=== PATIENT | male | born 1985 | race Caucasian/White ===

== ENCOUNTER 2018-03-05 17:24 | Outpatient (REF) | payer MEDICAID, SELFPAY ==
[2018-03-05 21:36] LABS: Abs Immature Grans 0.04 k/cumm (0.0-0.09); Absolute Basophil Count 0.02 k/cumm (0.0-0.2); Absolute Eosinophil Count 0.12 k/cumm (0.0-0.7); Absolute Lymphocyte Count 3.37 k/cumm (1.2-3.4); Absolute Monocyte Count 0.73 k/cumm (0.11-0.7); Basophils % 0.2; Eosinophils % 1.1; HCT 48.4 % (40.0-50.0); HGB 16.9 g/dL (13.5-17.5); Immature Grans % 0.4; Lymphocytes % 30.4; Mean Corp. HGB Concentration 34.9 g/dL (32.0-36.0); Mean Corpuscular Volume 88.8 fL (80-95); Mean Platelet Volume 10.1 fL (8.0-11.0); Monocytes % 6.6; Neutrophils % 61.3; Platelet Count 251 x1000/uL (130-400); RBC 5.45 m/cumm (4.50-6.00); RBC Distribution Width 14.3 % (11.8-14.1)
[2018-03-05 21:51] LABS: ALT 32 U/L (12-78); AST 31 U/L (15-37); Albumin 3.9 g/dL (3.4-5.0); Alkaline Phosphatase 112 U/L (46-116); Anion Gap 11.6 mmol/L (3-11); BUN 13 mg/dL (7-18); Bilirubin, Total 0.4 mg/dL (0.2-1.0); CO2 24.4 mmol/L (21.0-32.0); CREATININE 0.71 mg/dL (0.70-1.30); Calcium 8.8 mg/dL (8.5-10.1); Chloride 103 mmol/L (98-107); Glucose 78 mg/dL (70-100); Lipase 110 U/L (73-393); Potassium 4.3 mmol/L (3.5-5.1); Sodium 139 mmol/L (136-145); Total Protein 7.1 g/dL (6.4-8.2)
== END 2018-03-05 17:44 ==
LOC: NCHCN 17:24
PROVIDERS: PCP Registered Nurse; Visit Provider Registered Nurse
DX: R10.32 Left lower quadrant pain (principal)
CPT/HCPCS: 80053; 83690; 85025

== ENCOUNTER 2018-05-13 21:02 | Outpatient (REF) | payer MEDICAID, SELFPAY ==
[2018-05-13 22:53] LABS: Bacteria Moderate HPF (Negative); Crystals Negative HPF (Negative); Epithelial Cells Rare HPF (Negative); Other Cells Few Renal (Negative); RBC Negative (0-2)
[2018-05-13 22:54] LABS: C & S Indicated? No; Casts Negative LPF (Negative); Mucus Heavy (Negative)
== END 2018-05-13 21:22 ==
LOC: NCHCN 21:02
PROVIDERS: PCP Registered Nurse; Visit Provider Registered Nurse
DX: R82.90 Unspecified abnormal findings in urine (principal)
CPT/HCPCS: 81015

== ENCOUNTER 2018-05-21 15:46 | Outpatient (REF) | payer MEDICAID, SELFPAY ==
[2018-05-21 21:52] LABS: VALPROIC ACID 46.3 ug/mL (50-100)
[2018-05-21 22:21] LABS: TSH (W/Ref FT4) 1.28 uIU/mL (0.358-3.74); Vitamin B12 488 pg/mL (193-986)
== END 2018-05-21 16:06 ==
LOC: NCHCN 15:46
PROVIDERS: PCP Registered Nurse; Visit Provider Nurse Practitioner Family
DX: F41.8 Other specified anxiety disorders (principal); F51.4 Sleep terrors [night terrors]; F43.10 Post-traumatic stress disorder, unspecified; Z51.81 Encounter for therapeutic drug level monitoring
CPT/HCPCS: 80164; 82607; 84443

== ENCOUNTER 2021-04-07 12:04 | Emergency (ER) | payer MEDICAID, SELFPAY ==
[2021-04-07 12:16] VITALS: BP 130/74; PULSE 68; RESP 16; TEMP 36.8; O2SAT 99
--- NOTE | 2021-04-07 12:22 | ED.GENADUL_ITS ---
Discharge Plan Disposition Patient Disposition: HOME Condition: Stable Discharge Details Clinical Impression: Bacterial conjunctivitis of left eye Primary Care Provider: Dimitri Adler ED Provider: Clarisa Voss Home Meds and New Rx's Prescriptions: No Action fluoxetine 40 mg capsule 40 mg PO DAILY RF: 0 clonidine HCl 0.1 mg tablet 0.1 mg PO DAILY RF: 0 prazosin 1 mg capsule 1 mg PO DAILY RF: 0 topiramate 25 mg tablet 25 mg PO DAILY PRNRF: 0 valproic acid 250 mg capsule 250 mg PO TID RF: 0 omeprazole 40 mg capsule,delayed release(DR/EC) 40 mg PO DAILY RF: 0 gabapentin 300 mg capsule 400 mg PO BID RF: 0 Discharge Instructions Instructions: Polymyxin B/Trimethoprim (Into the eye), Conjunctivitis (ED) Additional Instructions: Use the eyedrops 2 drops to the left eye 3 times a day while awake. Wash hands after touching your eye. Try not to rub your eye. Use warm washcloth to soothe the eye. You may return to work after 3 days on antibiotic and improvement of symptoms. Please take Tylenol or Ibuprofen with food every 4-6 hours as needed for pain and swelling. Follow up with primary care provider in 3-5 days. Return to ED sooner if any worsening or concerns. Increase oral fluids. Stand Alone Forms: Work Release Referrals: Dimitri Adler [Primary Care Provider] - Return if symptoms worsen Medical Decision Making 35-year-old male presents to the ER with chief complaint of left eye erythema, drainage and itching which began today. Patient states he woke up like this itching. He was told to come home from work for possible pinkeye. He denies any sick contacts or any other associated symptoms. He does report recently recovering from a sinus infection which he took NyQuil for. He did not take any antibiotic for the sinus infection. No past medical history meds or allergies. Clinical picture is consistent with conjunctivitis. We will give patient polymyxin eyedrops and instructed to place 2 drops 3 times a day until gone. Discussed home care and strict handwashing techniques. Verbalized understanding. This text was generated using [employer] system, please disregard any oddities of phrase or misspellings. HPI General Mode of arrival: ambulatory . Date/Time Provider Initiated Documentation: 04/07/21 12:06 . Limitations to Documentation: no limitations . Information obtained by: patient and RN notes reviewed . HPI Narrative: 35-year-old male presents to the ER with chief complaint of left eye erythema, drainage and itching which began today. Patient states he woke up like this itching. He was told to come home from work for possible pinkeye. He denies any sick contacts or any other associated symptoms. He does report recently recovering from a sinus infection which he took NyQuil for. He did not take any antibiotic for the sinus infection. No past medical history meds or allergies. Related Data Home Medications Medication Instructions Recorded Confirmed clonidine HCl 0.1 mg PO DAILY 04/07/21 04/07/21 fluoxetine 40 mg PO DAILY 04/07/21 04/07/21 gabapentin 400 mg PO BID 04/07/21 04/07/21 omeprazole 40 mg PO DAILY 04/07/21 04/07/21 prazosin 1 mg PO DAILY 04/07/21 04/07/21 topiramate 25 mg PO DAILY PRN 04/07/21 04/07/21 valproic acid 250 mg PO TID 04/07/21 04/07/21 Allergies Allergy/AdvReac Type Severity Reaction Status Date / Time aspirin Allergy Unverified 04/07/21 12:26 latex Allergy Uncoded 04/07/21 12:26 General Stated Complaint: EyeProblem KYLE: 4 Review of Systems All systems reviewed & are unremarkable except as noted in HPI and below Eyes Eyes: Reports as per HPI, Denies diplopia, Reports eye discharge, Reports irritation, Reports itchy eyes, Denies loss of vision, Denies eye pain, Denies requires corrective lenses and Denies seeing flashes Neurologic Neurologic: Denies loss of vision Allergic/Immunologic Allergic/Immunologic: Reports itchy eyes PFSH All Active Problems (Updated 04/07/21 @ 12:27 by Clarisa Voss) Bacterial conjunctivitis of left eye (Acute) Social History Smoking risk assessment performed?: No Exam HENMT Head: normal to inspection Ears: hearing grossly normal bilaterally General nose exam: external nose normal Face and sinus: normal facial exam Mouth: oral mucosae normal Eyes Visual Vinson: normal visual vinson by confrontation Alignment and Position: alignment normal Periorbital: periorbital findings abnormal left periorbital erythema Conjunctivae: conjunctival abnormality left conjunctival injection diffuse Sclera: sclerae normal Cornea: corneas normal Pupils: PERRL, normal by confrontation and pupil size bilaterally 3 EOM: EOM intact bilaterally Resp Effort & Inspection: normal respiratory effort and able to speak in complete sentences Cardio Rate: regular rate Course Vital Signs Vital signs: Vital Signs Temperature 36.8 C 04/07/21 12:16 Pulse 68 04/07/21 12:16 Respiratory Rate 16 04/07/21 12:16 Blood Pressure 130/74 04/07/21 12:16 Pulse Oximetry 99 04/07/21 12:16 Temperature 36.8 C 04/07/21 12:16 Temperature Source Skin 04/07/21 12:16 Pulse 68 04/07/21 12:16 Respiratory Rate 16 04/07/21 12:16 Respiratory Effort 04/07/21 12:16 Blood Pressure 130/74 04/07/21 12:16 Blood Pressure Position Sitting 04/07/21 12:16 Pulse Oximetry 99 04/07/21 12:16 Oxygen Delivery Method Room Air 04/07/21 12:16 Oxygen Flow Rate 0 04/07/21 12:16 Pain Level 9 04/07/21 12:16
[2021-04-07] MEDS: Polymyxin B/Trimethoprim Ophth Soln 10 ML BTL OS (12:25)
== END 2021-04-07 12:40 | disposition home or self-care (01) ==
PROVIDERS: Emergency Provider Registered Nurse Emergency; PCP Family Medicine
DX: H10.32 Unspecified acute conjunctivitis, left eye (principal)
CPT/HCPCS: 99283

== ENCOUNTER 2021-04-24 01:35 | Emergency (ER) | payer MEDICARE, MEDICAID, SELFPAY ==
[2021-04-24] VITALS (8 sets, daily range): BP systolic 129–141; BP diastolic 76–99; PULSE 75–100; RESP 15–39; TEMP 37; O2SAT 97–99
--- NOTE | 2021-04-24 01:45 | DI.CT_ITS ---
Exam(s) CT HEAD WO EXAM: CT HEAD WO CLINICAL HISTORY: seizure, headache. TECHNIQUE: Imaging Protocol: Axial computed tomography images with coronal and sagittal reformatted images were created and reviewed COMPARISON: No exams were available for comparison FINDINGS: Ventricles and Extra axial spaces: Normal in size and morphology for the patient's age. Hemorrhage: None. Cerebral parenchyma: Old lacunar infarct in the right basal ganglia and region of internal capsule. No acute infarct visible. Midline shift: None. Brainstem/Cerebellum: Normal. Calvarium: Normal. 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 The sinuse s are are otherwise clear. Left mastoids clear. Clear. Soft Tissues: question posterior scalp swelling. Vasculature: There is a question of prominence of the right cavernous carotid versus cavernous sinus , more so on the axial images which may be artifactual. Findings could represent normal asymmetry, a rtifact, aneurysmal dilatation or less likely a mass such as meningioma. IMPRESSION: Old right basal ganglia lacunar infarct. There is a question of prominence of the right cavernous carotid versus cavernous sinus, more so on t he axial images which may be artifactual. Findings could represent normal asymmetry, artifact, aneury smal dilatation or less likely a mass such as meningioma. Comparison with prior exams recommended. If none are available, MRI and MRA recommended for further evaluation. RADIATION DOSE DELIVERED: 837.64mGy.cm Total DLP DATA REPOSITORY: All CT scans at this facility are submitted to the National Radiology Data Registry (NRDR) Dose Index Registry (DIR) with the [employer] (ACR). RADIATION OPTIMIZATION: All CT scans at this facility use at least one of these dose optimization te chniques: automated exposure control; mA and/or kV adjustment per patient size (includes targeted exa ms where dose is matched to clinical indication); or iterative reconstruction.
[2021-04-24 01:46] LABS: Abs Immature Grans 0.03 10^3/uL (0.0-0.06); Absolute Basophil Count 0.04 10^3/uL (0.0-0.2); Absolute Eosinophil Count 0.11 10^3/uL (0.0-0.7); Absolute Monocyte Count 0.85 10^3/uL (0.1-0.8); Basophils % 0.3; Eosinophils % 0.8; HCT 47.5 % (40.0-50.0); HGB 16.1 g/dL (13.5-17.5); Immature Grans % 0.2; Lymphocytes % 24.5; MCH 30.8 pg (27.0-33.0); MCHC 33.9 % (32.0-36.0); MPV 9.1 fL (8.0-11.0); Monocytes % 6.4; Neutrophils % 67.8; Nucleated RBC 0 %; Platelet Count 257 10^3/uL (130-400); RBC 5.22 10^6/uL (4.36-5.78); RDW 13.2 % (11.8-14.1); RDW-SD 45.1 fL; WBC 13.32 10^3/uL (4.4-10.8)
[2021-04-24 01:48] LABS: Absolute Lymphocyte Count 3.26 10^3/uL (1.2-3.4); Absolute Neutrophil Count 9.03 10^3/uL (1.2-6.7)
--- NOTE | 2021-04-24 01:53 | ED.GENADUL_ITS ---
Discharge Plan Disposition Patient Disposition: HOME Condition: Stable Discharge Details Clinical Impression: Seizure Primary Care Provider: Dimitri Adler ED Provider: Manolo Leon Home Meds and New Rx's Prescriptions: Continued fluoxetine 40 mg capsule 40 mg PO DAILY RF: 0 clonidine HCl 0.1 mg tablet 0.1 mg PO DAILY RF: 0 prazosin 1 mg capsule 1 mg PO DAILY RF: 0 topiramate 25 mg tablet 25 mg PO DAILY PRNRF: 0 valproic acid 250 mg capsule 250 mg PO TID RF: 0 omeprazole 40 mg capsule,delayed release(DR/EC) 40 mg PO DAILY RF: 0 gabapentin 300 mg capsule 400 mg PO BID RF: 0 Discharge Instructions Additional Instructions: Your blood work did not show concerning findings at this time your cat scan did not show any bleeding or other new findings follow up with your primary care provider within a week and if you haven't had an MRI within the past year you should discuss having another MRI of your brain if you feel more ill, have repeated seizures or fevers return to the emergency department do not swim/bathe alone or drive until cleared by your primary care provider or neurologist Stand Alone Forms: Work Release Medical Decision Making 35 yo male with reported history of seizures on valproic acid and states his pcp in [place] manages his medications, comes in with reported seizure. He states he gets seizures and migraines every few weeks and especially under stressful events. He states family members were arguing which caused him to have frontal head pain similar to his prior migraines and then had reported tonic clonic seizure and was post ictal per ems. He arrives stable caox4 with no focal motor or sensation deficits and CN II-XII intact. Denies alcohol or drug use. HE denies missing any doses of his meds. He denies any falls. HE still has frontal head pain but denies this is the worst of his life. Given the seizure will observe here and obtain ct head, and check for electrolyte abnormalities. No meningismus and no fevers to suggest recruitment specialist infection pt remains stable, labs unremarkable. CT shows no acute hemorrhage. He does have assymetric hyperdense soft tissue prominence in location of right cavernos sinus and this could represent normal variant though the radiologist did write an aneursym or extraaxial mass such as meningioma could have similar appearance and recommend MRI if it hasn't been worked up before. Also note a lacunar infarct that is old and also underpneumatized right temporal bone. He has no pain in the right mastoid, normal TM and no erythema or warmth so doubt mastoiditis. He is feeling better, he states he had a cva 2 years ago on his birthday and was treated at [facility]. He states he has had an MRI within the past year. HE is stable for d/c and I advised to follow up with his pcp and return precautions given Differential Diagnosis Differential Diagnosis: seizure, migraine, hemorrhage, electrolyte abnormality Imaging Data Radiologic Study: Attestation: I personally reviewed and interpreted this imaging study as follows: Imaging: CT Scan Radiologist's impression: IMPRESSION: 1. No acute intracranial hemorrhage or depressed skull fracture. MARLEN MENDEZ Preliminary Radiology Report ALUMINUM CONTAINER TESTER (QA) DISCREPANCY? If there is a discrepancy between the preliminary and final interpretation, please notify [employer] via [email or web address]. If you do not have access to our QA portal, call our QA team at [phone] CONFIDENTIALITY STATEMENT This report is intended only for the use of the referring physician, and only in accordance with law, If you received this in error, call [phone] Page 2 of 2 2. Asymmetric hyperdense extra-axial nodular soft tissue prominence in the expected location of the right cavernous sinus and right carotid siphon. The etiology of this appearance is uncertain. Unusual asymmetry of the normal carotid siphon could perhaps have this appearance; however, an aneurysm or an extra-axial mass such as a meningioma could have a similar appearance. Further evaluation dedicated MRI is recommended if this finding has not been previously worked up. 3. Large old lacunar infarct in the region of the right basal ganglia and deep white matter tracts, unusual in a patient of this age. 4. Underpneumatized right temporal bone. Partial opacification of the right mastoid air cells. Clinical correlation is recommended to distinguish a mastoid effusion from mastoiditis Lab Data Lab results reviewed: Yes I reviewed the patient's lab results. HPI General Mode of arrival: EMS . Date/Time Provider Initiated Documentation: 04/24/21 01:36 . Limitations to Documentation: no limitations . Information obtained by: patient . History of Present Illness 35 year old M presents to the emergency department with the chief complaint of seizure, Patient started experiencing this hour(s) (1) and it has been now resolved. No relieving factors improve symptom(s), No exacerbating factors reported . Patient notes headaches. Patient did receive the following treatments prior to arrival, none Related Data Home Medications Medication Instructions Recorded Confirmed clonidine HCl 0.1 mg PO DAILY 04/07/21 04/24/21 fluoxetine 40 mg PO DAILY 04/07/21 04/24/21 gabapentin 400 mg PO BID 04/07/21 04/24/21 omeprazole 40 mg PO DAILY 04/07/21 04/24/21 prazosin 1 mg PO DAILY 04/07/21 04/24/21 topiramate 25 mg PO DAILY PRN 04/07/21 04/24/21 valproic acid 250 mg PO TID 04/07/21 04/24/21 Allergies Allergy/AdvReac Type Severity Reaction Status Date / Time aspirin Allergy Unverified 04/24/21 01:51 latex Allergy Uncoded 04/24/21 01:51 General Stated Complaint: Seizure KYLE: 2 Review of Systems All systems reviewed & are unremarkable except as noted in HPI and below Constitutional Constitutional: Denies chills, Denies fever(s) and Denies weakness Cardiovascular Cardiovascular: Denies chest pain and Denies dyspnea Respiratory Respiratory: Denies cough and Denies dyspnea Gastrointestinal Gastrointestinal: Denies abdominal pain, Denies nausea and Denies vomiting Musculoskeletal Musculoskeletal: Denies joint swelling Neurologic Neurologic: Denies weakness PFSH All Active Problems (Updated 04/24/21 @ 02:33 by Manolo Leon MD) Bacterial conjunctivitis of left eye (Acute) Seizure (Acute) Social History Smoking/Tobacco Use Status: Current every day Tobacco Type: cigarettes Smoking risk assessment performed?: Yes Alcohol Intake: current Alcohol Intake frequency: a few times a month Alcohol type: wine Drug use: Never Substance use type: does not use Do you feel safe at home: Yes Do you feel safe in your relationship?: Yes Exam Const General: no acute distress Orientation: alert HENMT Head: normal to inspection Ears: external ears normal General nose exam: external nose normal Mouth: moist mucous membranes Eyes General: appearance normal, both eyes and all related structures Neck Neck: normal visual inspection Resp Effort & Inspection: normal respiratory effort and able to speak in complete sentences Cardio Rate: regular rate Skin General skin exam: no rashes or lesions noted Neuro General: patient alert and patient oriented x3 Extrem General: normal to inspection Psych Mental Status: mental status grossly normal Course Vital Signs Vital signs: Vital Signs Temperature 37.0 C 04/24/21 01:35 Pulse 100 H 04/24/21 01:35 Respiratory Rate 18 04/24/21 01:35 Blood Pressure 141/87 H 04/24/21 01:35 Pulse Oximetry 99 04/24/21 01:35 Temperature 37.0 C 04/24/21 01:35 Temperature Source Skin 04/24/21 01:35 Pulse 100 H 04/24/21 01:35 Respiratory Rate 18 04/24/21 01:35 Respiratory Effort Non-Labored 04/24/21 01:51 Blood Pressure 141/87 H 04/24/21 01:35 Blood Pressure Position Supine 04/24/21 01:35 Pulse Oximetry 99 04/24/21 01:35 Oxygen Delivery Method Room Air 04/24/21 01:35 Oxygen Flow Rate 0 04/24/21 01:35 Pain Level 10 04/24/21 01:35 Lab/Test Results Lab/Test Results: Laboratory Tests Range/Units 04/24/21 01:40 WBC (4.4-10.8) 10^3/uL 13.32 H RBC (4.36-5.78) 10^6/uL 5.22 Hgb (13.5-17.5) g/dL 16.1 Hct (40.0-50.0) % 47.5 MCV (80-95) fL 91.0 MCH (27.0-33.0) pg 30.8 MCHC (32.0-36.0) % 33.9 RDW (11.8-14.1) % 13.2 Plt Count (130-400) 10^3/uL 257 MPV (8.0-11.0) fL 9.1 Immature Gran % 0.2 Neutrophils % 67.8 Lymphocytes % 24.5 Monocytes % 6.4 Eosinophils % 0.8 Basophils % 0.3 Nucleated RBC % % 0 Absolute Neutrophils (1.2-6.7) 10^3/uL 9.03 H Absolute Lymphocytes (1.2-3.4) 10^3/uL 3.26 Absolute Monocytes (0.1-0.8) 10^3/uL 0.85 H Absolute Eosinophils (0.0-0.7) 10^3/uL 0.11 Absolute Basophils (0.0-0.2) 10^3/uL 0.04
[2021-04-24 02:00] LABS: VALPROIC ACID < 3 ug/mL
[2021-04-24 02:02] LABS: ALT 18 U/L (16-63); AST 16 U/L (15-37); Alkaline Phosphatase 105 U/L (46-116); Anion Gap 11.8 mmol/L (3-11); BUN 15 mg/dL (7-18); Bilirubin, Total 0.2 mg/dL (0.2-1.0); CO2 26.2 mmol/L (21.0-32.0); Calcium 8.7 mg/dL (8.5-10.1); Chloride 101 mmol/L (98-107); ETHANOL BLOOD < 3.0 mg/dL (<10); Glucose 98 mg/dL (74-106); Magnesium 1.9 mg/dL (1.8-2.4); Potassium 3.6 mmol/L (3.5-5.1); Sodium 139 mmol/L (136-145); Total Protein 7.3 g/dL (6.4-8.2)
[2021-04-24] MEDS: Acetaminophen 500 MG TAB 1000 MG PO (02:16)
--- NOTE | 2021-04-24 02:23 | DI.VRAD_ITS ---
PROCEDURE INFORMATION: Exam: CT Head Without Contrast Exam date and time: 04/24/2021 1:53 AM Age: 35 years old Clinical indication: Other: Seizure and headache TECHNIQUE: Imaging protocol: Computed tomography of the head without contrast. COMPARISON: No relevant prior studies available. FINDINGS: Brain: No acute intracranial hemorrhage, mass-effect, midline shift, or extra-axial collection is seen. There is a large old lacunar infarct in the region of the right basal ganglia and deep white matter tracts, images 23-32 of series 3. There is unusual asymmetric hyperdense nodular extra-axial soft tissue prominence in the region of the right cavernous sinus and right carotid siphon measuring 1.4 cm x 0.8 cm x 1.1 cm on images 16-17 of series 3 and 49 of series 8. Cerebral ventricles: The ventricular system and basilar cisterns appear appropriate in size and configuration. Paranasal sinuses: The visualized paranasal sinuses appear well-aerated. Mastoid air cells: The left mastoid air cells appear clear. The right temporal bone is underpneumatized. There is partial opacification of the right mastoid air cells. Auditory system: The middle ear cavities appear clear. Orbital cavity: The globes and intraorbital structures appear grossly intact. Bones/joints: The bony calvarium appears intact. No depressed skull fracture is seen. Soft tissues: There appears to be soft tissue swelling extending across the posterior scalp. No focal scalp hematoma is demonstrated. IMPRESSION: 1. No acute intracranial hemorrhage or depressed skull fracture. 2. Asymmetric hyperdense extra-axial nodular soft tissue prominence in the expected location of the right cavernous sinus and right carotid siphon. The etiology of this appearance is uncertain. Unusual asymmetry of the normal carotid siphon could perhaps have this appearance; however, an aneurysm or an extra-axial mass such as a meningioma could have a similar appearance. Further evaluation dedicated MRI is recommended if this finding has not been previously worked up. 3. Large old lacunar infarct in the region of the right basal ganglia and deep white matter tracts, unusual in a patient of this age. 4. Underpneumatized right temporal bone. Partial opacification of the right mastoid air cells. Clinical correlation is recommended to distinguish a mastoid effusion from mastoiditis. Dictated and Authenticated by: Daquan Cruz MD. Ordering:OMEGA French MD
[2021-04-24 03:01] LABS: *AMPHETAMINES SCREEN URINE Negative (Negative); *BARBITURATES SCREEN URINE Negative (Negative); *BENZODIAZEPINES SCREEN URINE Negative (Negative); Cannabinoids THC Negative (Negative); Cocaine Screen,Urine Negative (Negative); METHADONE URINE SCREEN Negative (Negative); OPIATES URINE SCREEN Negative (Negative); Tricyclic Antidepressants Negative (Negative)
== END 2021-04-24 02:45 | disposition home or self-care (01) ==
LOC: ER 02:38
PROVIDERS: Emergency Provider Emergency Medicine; PCP Family Medicine
DX: R56.9 Unspecified convulsions (principal); R51.9 Headache, unspecified; Z79.899 Other long term (current) drug therapy
CPT/HCPCS: 36415; 80053; 80307; 99284; 70450; 80164; 80320; 83735; 85025

== ENCOUNTER → 2021-06-14 01:04 | Outpatient (CLI) | payer MEDICARE, MEDICAID, SELFPAY | PROVIDERS: PCP Family Medicine; Visit Provider Family Medicine ==

== ENCOUNTER 2022-03-14 13:55 | Outpatient (REF) | payer MEDICARE, MEDICAID, SELFPAY ==
[2022-03-17 11:50] LABS: COVID-19 RT-PCR UVMMC Result Negative (Negative)
== END 2022-03-14 13:56 | disposition home or self-care (01) ==
LOC: LBN 13:55
PROVIDERS: PCP Family Medicine; Visit Provider Physician Assistant Medical
DX: Z20.822 Contact with and (suspected) exposure to COVID-19 (principal); J02.9 Acute pharyngitis, unspecified
CPT/HCPCS: U0003

== ENCOUNTER 2022-03-18 19:55 | Emergency (ER) | payer MEDICARE, MEDICAID, SELFPAY ==
[2022-03-18 20:05] VITALS: BP 140/76; PULSE 69; RESP 16; TEMP 37.3; O2SAT 100
--- NOTE | 2022-03-18 20:56 | ED.GENADUL_ITS ---
Discharge Plan Disposition Patient Disposition: Home Condition: Stable Discharge Details Clinical Impression: Laceration of hand, left Primary Care Provider: Dimitri Adler ED Provider: Clarisa Voss Home Meds and New Rx's Prescriptions: New clindamycin HCl 150 mg capsule 300 mg PO BID 7 Days Qty: 28 0RF No Action Flovent HFA 110 mcg/actuation HFA aerosol inhaler 1 puff inhalation BID prazosin 1 mg capsule 1 mg PO DAILY prazosin 1 mg capsule 2 mg PO QHS Label Comments: TAKE 1 CAPSULE BY MOUTH EVERY DAY melatonin 3 mg capsule 3 mg PO HS PRN fluoxetine 40 mg capsule 40 mg PO DAILY Label Comments: TAKE 1 CAPSULE BY MOUTH EVERY DAY IN THE MORNING clonidine HCl 0.1 mg tablet 0.1 mg PO DAILY Label Comments: TAKE 1 TABLET BY MOUTH EVERY DAY AT NOON topiramate 25 mg tablet 25 mg PO DAILY PRN Label Comments: TAKE 1 TABLET BY MOUTH TWICE DAILY valproic acid 250 mg capsule 250 mg PO TID Label Comments: TAKE 1 CAPSULE BY MOUTH FOUR TIMES DAILY omeprazole 40 mg capsule,delayed release(DR/EC) 40 mg PO DAILY Label Comments: TAKE 1 CAPSULE BY MOUTH EVERY DAY gabapentin 300 mg capsule 400 mg PO BID Label Comments: TAKE 2 CAPSULES BY MOUTH EVERY DAY AT BEDTIME Discharge Instructions Instructions: Laceration (ED) Additional Instructions: Please keep clean and dry for the next 12 to 24 hours. No soaking or swimming. You may wash under running soap and water after 12 to 24 hours. Have sutures removed in 7 to 10 days. You may come back here to have sutures removed or be seen at urgent care. Return sooner or be seen sooner for any signs of infection including increased redness, red streaks, swelling, drainage increased pain or fever. Take the antibiotics as directed with yogurt twice daily for the next 7 days. You were given the first dose here. Stand Alone Forms: Work Release Referrals: Dimitri Adler [Primary Care Provider] - 1 week Medical Decision Making 36-year-old male presents to the ER chief complaint of left dorsal hand laceration which occurred couple hours prior to arrival while at work. 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 Anesthesia achieved. Laceration irrigated with sterile saline and chlorhexidine scrub. Laceration repaired with 6 simple interrupted sutures four-point 0 Ethilon. Discussed home care, strict return instructions, verbalized understanding. Patient given clindamycin to treat empirically for cellulitis due to the laceration over the joint. Patient is allergic to amoxicillin. This text was generated using [employer] system, please disregard any oddities of phrase or misspellings. Sign Out No HPI General Mode of arrival: ambulatory . Date/Time Provider Initiated Documentation: 03/18/22 20:43 . Limitations to Documentation: no limitations . Information obtained by: patient, RN notes reviewed and old records reviewed . HPI Narrative: 36-year-old male presents to the ER chief complaint of left dorsal hand laceration which occurred couple hours prior to arrival while at work. He was using a wire bound box machine helper to cut some boxes and accidentally sliced his left hand. He reports he is left-handed. He reports he is up-to-date on his tetanus vaccination status. Past medical history includes CVA, GERD, bipolar disorder, ADHD, asthma, major depressive disorder, PTSD anxiety and social phobia. Related Data Home Medications Medication Instructions Recorded Confirmed clonidine HCl 0.1 mg tablet 0.1 mg PO DAILY 04/07/21 04/24/21 fluoxetine 40 mg capsule 40 mg PO DAILY 04/07/21 04/24/21 gabapentin 300 mg capsule 400 mg PO BID 04/07/21 04/24/21 omeprazole 40 mg capsule,delayed 40 mg PO DAILY 04/07/21 04/24/21 release topiramate 25 mg tablet 25 mg PO DAILY PRN 04/07/21 04/24/21 valproic acid 250 mg capsule 250 mg PO TID 04/07/21 04/24/21 fluticasone propionate 110 1 puff inhalation BID 05/22/21 mcg/actuation HFA aerosol inhaler (Flovent HFA) melatonin 3 mg capsule 3 mg PO HS PRN 05/22/21 prazosin 1 mg capsule 1 mg PO DAILY 05/22/21 prazosin 1 mg capsule 2 mg PO QHS 05/22/21 clindamycin HCl 150 mg capsule 300 mg PO BID 7 days #28 caps 03/18/22 Previous Rx's Medication Instructions Recorded clindamycin HCl 150 mg capsule 300 mg PO BID 7 days #28 caps 03/18/22 Allergies Allergy/AdvReac Type Severity Reaction Status Date / Time amoxicillin Allergy Severe edema Verified 05/22/21 10:53 aspirin Allergy Severe edema Unverified 05/22/21 10:53 bee venom protein (honey bee) Allergy Verified 05/22/21 10:53 Milk Containing Products Allergy Verified 05/22/21 10:53 latex Allergy Severe rash Uncoded 05/22/21 10:53 General Stated Complaint: Laceration KYLE: 4 Review of Systems Integumentary/Breasts Skin/Breast: Reports as per HPI and Reports wounds (Laceration left dorsal hand) PFSH All Active Problems (Updated 03/18/22 @ 21:42 by Clarisa Voss NP) Laceration of hand, left (Acute) Medical History (Updated 03/18/22 @ 21:42 by Clarisa Voss NP) ADHD Asthma Bipolar disorder Breathing-related sleep disorder CVA (cerebral vascular accident) Generalized anxiety disorder GERD (gastroesophageal reflux disease) Migraines Moderate recurrent major depression PTSD (post-traumatic stress disorder) Severe anxiety with panic Sleep terror disorder Social phobia Surgical History (Updated 05/22/21 @ 11:12 by Maritza Shell) H/O wisdom tooth extraction History of esophagogastroduodenoscopy x2 Family History (Updated 05/22/21 @ 11:09 by Maritza Shell) Mother Bipolar disorder Brother Schizophrenia ADHD Social History (Updated 05/22/21 @ 11:10 by Maritza Shell) Smoking/Tobacco Use Status: Current every day Tobacco Type: cigarettes Smoking risk assessment performed?: Yes Alcohol Intake: current Alcohol Intake frequency: a few times a month Alcohol type: wine Drug use: Never Substance use type: does not use What type of physical activity do you participate in: walking Do you feel safe at home: Yes Do you feel safe in your relationship?: Yes Exam Extrem Right upper extremity: hand Details: laceration dorsal hand radial aspect central Details: irregular, actively bleeding (Bleeding controlled with pressure.), contaminated and involving subcutaneous tissue Hand/finger images: 1. Approximately 3 cm somewhat superficial laceration noted, he does have full flexion and extension to his digits and distal sensation intact. He does have some report of decreased sensation but that is chronic since his stroke. Does have some residual left-sided deficits per report. No focal neurodeficits. Course Vital Signs Vital signs: Vital Signs Temperature 37.3 C 03/18/22 20:05 Pulse 69 03/18/22 20:05 Respiratory Rate 16 03/18/22 20:05 Blood Pressure 140/76 03/18/22 20:05 Pulse Oximetry 100 03/18/22 20:05 Temperature 37.3 C 03/18/22 20:05 Temperature Source Oral 03/18/22 20:05 Pulse 69 03/18/22 20:05 Respiratory Rate 16 03/18/22 20:05 Respiratory Effort 03/18/22 20:08 Blood Pressure 140/76 03/18/22 20:05 Pulse Oximetry 100 03/18/22 20:05 Oxygen Delivery Method Room Air 03/18/22 20:05 Oxygen Flow Rate 0 03/18/22 20:05 Pain Level 10 03/18/22 20:05 Procedures Laceration Laceration 1: Site: hand Side (If applicable): left Size (cm): 3.5 Description: linear and contaminated Depth: simple, single layer Local Anesthetic: Lidocaine 1% and with Epi Amount of anesthesia used (mL): 1.5 Pre-repair: wound explored, irrigated extensively and deep structures intact Skin layer closed with: nylon Size (cm): 4-0 Number of sutures: 6 Technique: simple, interrupted
--- NOTE | 2022-03-18 21:42 | NUR.NOTE ---
Lac cleaned and wrapped per [employer]. NAD noted.
== END 2022-03-18 21:51 | disposition home or self-care (01) ==
PROVIDERS: Emergency Provider Registered Nurse Emergency; PCP Family Medicine
DX: S61.412A Laceration without foreign body of left hand, initial encounter (principal); W26.0XXA Contact with knife, initial encounter; Y99.0 Civilian activity done for income or pay
CPT/HCPCS: 12002

== ENCOUNTER 2022-07-31 23:45 | Emergency (ER) | payer MEDICARE, MEDICAID, SELFPAY ==
[2022-07-31 23:48] VITALS: BP 141/80; PULSE 77; RESP 18; TEMP 36.6; O2SAT 98
--- NOTE | 2022-08-01 | W.ED.GENAD ---
Discharge Plan Disposition Patient Disposition: Home Condition: Good Discharge Details Clinical Impression: Abscess, dental Primary Care Provider: Dimitri Adler ED Provider: Juan J Chavez Home Meds and New Rx's Prescriptions: New clindamycin HCl [Cleocin HCl] 150 mg capsule 450 mg PO QID 7 Days Qty: 84 0RF No Action Flovent HFA 110 mcg/actuation HFA aerosol inhaler 1 puff inhalation BID prazosin 1 mg capsule 1 mg PO DAILY prazosin 1 mg capsule 2 mg PO QHS Patient Comments: TAKE 1 CAPSULE BY MOUTH EVERY DAY melatonin 3 mg capsule 3 mg PO HS PRN fluoxetine 40 mg capsule 40 mg PO DAILY Patient Comments: TAKE 1 CAPSULE BY MOUTH EVERY DAY IN THE MORNING clonidine HCl 0.1 mg tablet 0.1 mg PO DAILY Patient Comments: TAKE 1 TABLET BY MOUTH EVERY DAY AT NOON topiramate 25 mg tablet 25 mg PO DAILY PRN Patient Comments: TAKE 1 TABLET BY MOUTH TWICE DAILY valproic acid 250 mg capsule 250 mg PO TID Patient Comments: TAKE 1 CAPSULE BY MOUTH FOUR TIMES DAILY omeprazole 40 mg capsule,delayed release(DR/EC) 40 mg PO DAILY Patient Comments: TAKE 1 CAPSULE BY MOUTH EVERY DAY gabapentin 300 mg capsule 400 mg PO BID Patient Comments: TAKE 2 CAPSULES BY MOUTH EVERY DAY AT BEDTIME Discharge Instructions Instructions: Dental Abscess (ED) Additional Instructions: The block we administered should help improve your pain. Please take 800 mg of ibuprofen every 6 hours and 1000 mg of Tylenol every 6 hours to help with the inflammation and pain. These are the maximum doses. Please take the antibiotic as directed to help with the infection in your tooth. Please use the dental list that we have provided to contact the dentist for prompt follow-up and evaluation for tooth removal. If you notice any worsening of your symptoms, or any new symptoms such as difficulty swallowing, difficulty breathing, vomiting, diarrhea, fever, chills, shortness of breath, chest pain, numbness, weakness, or fainting , please return immediately to the emergency department for reevaluation. Please follow up with your primary care provider as soon as possible for reassessment and reevaluation. As always, it was a pleasure participating in your medical care today. Stand Alone Forms: Work Release Referrals: Dimitri Adler [Primary Care Provider] - Medical Decision Making 36-year-old male with past medical history ADHD, asthma, bipolar, CVA, GERD, PTSD, presents today for evaluation of left upper dental swelling and pain. Symptoms began about 4 hours ago. He has known dental caries. He has not seen a dentist. He admits to pain and swelling in that area after he took a nap. He denies any difficulty swallowing or drinking. He denies any chest pain or shortness of breath. No headache. No other complaints at this time. He has a history of dental problems in the past. Exam demonstrates evidence of periapical abscess around the left upper tooth. Risks and benefits were discussed, patient elected for anesthetic followed by drainage. We will give clindamycin here secondary to his amoxicillin allergy. Will give Toradol. Area was drained, notable amount of pus and purulence was removed. Patient tolerated this well. Patient will be given a dental sheet for home use. I have extensively reviewed the treatment plan and discharge instructions with the patient. I have addressed all patient concerns at this time. The patient was made aware of what symptoms to monitor for that would warrant a return to the emergency department. Discussed the plan with the patient, they demonstrate verbal understanding and agreement with our assessment and plan at this time. The documentation in this chart was dictated using [employer] dictation software. Please excuse any dictation errors. HPI General Date/Time Provider Initiated Documentation: 07/31/22 23:58. HPI Narrative: 36-year-old male with past medical history ADHD, asthma, bipolar, CVA, GERD, PTSD, presents today for evaluation of left upper dental swelling and pain. Symptoms began about 4 hours ago. He has known dental caries. He has not seen a dentist. He admits to pain and swelling in that area after he took a nap. He denies any difficulty swallowing or drinking. He denies any chest pain or shortness of breath. No headache. No other complaints at this time. He has a history of dental problems in the past. Related Data Home Medications Medication Instructions Recorded Confirmed clonidine HCl 0.1 mg tablet 0.1 mg PO DAILY 04/07/21 04/24/21 fluoxetine 40 mg capsule 40 mg PO DAILY 04/07/21 04/24/21 gabapentin 300 mg capsule 400 mg PO BID 04/07/21 04/24/21 omeprazole 40 mg capsule,delayed 40 mg PO DAILY 04/07/21 04/24/21 release topiramate 25 mg tablet 25 mg PO DAILY PRN 04/07/21 04/24/21 valproic acid 250 mg capsule 250 mg PO TID 04/07/21 04/24/21 fluticasone propionate 110 1 puff inhalation BID 05/22/21 mcg/actuation HFA aerosol inhaler (Flovent HFA) melatonin 3 mg capsule 3 mg PO HS PRN 05/22/21 prazosin 1 mg capsule 1 mg PO DAILY 05/22/21 prazosin 1 mg capsule 2 mg PO QHS 05/22/21 clindamycin HCl 150 mg capsule 450 mg PO QID 7 days #84 caps 08/01/22 (Cleocin HCl) Previous Rx's Medication Instructions Recorded clindamycin HCl 150 mg capsule 450 mg PO QID 7 days #84 caps 08/01/22 (Cleocin HCl) Allergies Allergy/AdvReac Type Severity Reaction Status Date / Time amoxicillin Allergy Severe edema Verified 05/22/21 10:53 aspirin Allergy Severe edema Unverified 05/22/21 10:53 bee venom protein (honey bee) Allergy Verified 05/22/21 10:53 Milk Containing Products Allergy Verified 05/22/21 10:53 latex Allergy Severe rash Uncoded 05/22/21 10:53 General Stated Complaint: DentalOral KYLE: 4 Review of Systems All systems reviewed & are unremarkable except as noted in HPI and below PFSH Medical History ADHD Asthma Bipolar disorder Breathing-related sleep disorder CVA (cerebral vascular accident) Generalized anxiety disorder GERD (gastroesophageal reflux disease) Migraines Moderate recurrent major depression PTSD (post-traumatic stress disorder) Severe anxiety with panic Sleep terror disorder Social phobia Surgical History H/O wisdom tooth extraction History of esophagogastroduodenoscopy x2 Family History Mother Bipolar disorder Brother Schizophrenia ADHD Social History Smoking/Tobacco Use Status: Current every day Tobacco Type: cigarettes Smoking risk assessment performed?: Yes Alcohol Intake: former Drug use: Never Substance use type: does not use What type of physical activity do you participate in: walking Do you feel safe at home: Yes Do you feel safe in your relationship?: Yes Exam Narrative Exam Narrative: 1.Const: Well-nourished, Well-developed, appearing stated age 2.Eyes: PERRL, no conjunctival injection, and symmetrical lids. 3.ENT: Atraumatic external nose and ears. Moist MM. Neck: Symmetric, trachea midline, No thyromegaly. Notable dental caries throughout. There is an area of swelling over the left frontal upper canine. No active drainage or discharge. Small area of fluctuance over the canine suggesting a periapical abscess. No evidence of Ludewig's angina. 4.CVS: +S1/S2, No murmurs or gallops. Peripheral pulses 2+ and equal in all extremities. Brisk capillary refill in all extremities. 5.RESP: Unlabored respiratory effort. Clear to auscultation bilaterally. No wheezes rales or rhonchi 6.GI: Soft, Nontender/Nondistended, No hepatosplenomegaly. No guarding or rebound. 7.MSK: Normocephalic/Atraumatic, Extremities w/o deformity or ttp No cyanosis or clubbing, Normal movement of all extremities 8.Skin: Warm, Dry. No rashes or lesions. 9.Neuro: criminal legal assistant II-XII grossly intact. Sensation grossly intact, no focal neurologic deficits. 10.Psych: (AAO) x3. Appropriate mood and affect Course Vital Signs Vital signs: Vital Signs Temperature 36.6 C 07/31/22 23:48 Pulse 77 07/31/22 23:48 Respiratory Rate 18 07/31/22 23:48 Blood Pressure 141/80 H 07/31/22 23:48 Pulse Oximetry 98 07/31/22 23:48 Temperature 36.6 C 07/31/22 23:48 Temperature Source Tympanic 07/31/22 23:48 Pulse 77 07/31/22 23:48 Respiratory Rate 18 07/31/22 23:48 Respiratory Effort Normal 07/31/22 23:52 Blood Pressure 141/80 H 07/31/22 23:48 Blood Pressure Position Sitting 07/31/22 23:48 Pulse Oximetry 98 07/31/22 23:48 Oxygen Delivery Method Room Air 07/31/22 23:48 Oxygen Flow Rate 0 07/31/22 23:48 Pain Level 10 07/31/22 23:48 Procedures Abscess I/D Site: Other (Left upper arm gum) Side (if applicable): Left Local Anesthetic: Bupivicaine 0.5% Amount of anesthesia used (mL): 5 Technique: Needle Aspiration Amount of fluid expressed (mL): 3 Irrigation: No Packing used?: None Complications: Other (No complications) Nerve Block Nerve Block 1: Time out performed: Yes Local Anesthetic: Bupivicaine 0.25% Amount of anesthesia used (mL): 5 Side: left Intraoral Nerve Block: supraperiosteal Procedure Successful: Yes Patient Tolerated Procedure: well and no complications Complications: none
[2022-08-01] MEDS: Clindamycin 150 MG CAP, 12 CAPS/BTL 450 MG PO (00:04)
[2022-08-01] MEDS: Ketorolac 30 MG/ML VIAL IM (00:04)
[2022-08-01] MEDS: Bupivacaine 0.5% Pres-Free 30 ML VIAL (00:05)
[2022-08-01] MEDS: Clindamycin 150 MG CAP 450 MG PO (00:05)
== END 2022-08-01 00:16 | disposition home or self-care (01) ==
LOC: ER 08-01 00:27
PROVIDERS: Emergency Provider Student in an Organized Health Care Education/Training Program; PCP Family Medicine
DX: K04.7 Periapical abscess without sinus (principal); J45.909 Unspecified asthma, uncomplicated; Z86.73 Personal history of transient ischemic attack (TIA), and cerebral infarction without residual deficits; Z79.51 Long term (current) use of inhaled steroids
CPT/HCPCS: 10160; 41800; 64400; 96372; 99284; J1885

== ENCOUNTER 2022-09-27 19:22 | Emergency (ER) | payer MEDICARE, MEDICAID, SELFPAY ==
[2022-09-27 19:22] VITALS: BP 136/81; PULSE 89; RESP 16; TEMP 36.7; O2SAT 99
--- NOTE | 2022-09-27 19:59 | ED.GENADUL_ITS ---
Discharge Plan Disposition Patient Disposition: Home Condition: Stable Discharge Details Clinical Impression: Anxiety, Grief reaction, Asthma Primary Care Provider: Dimitri Adler ED Provider: David Pederson Home Meds and New Rx's Prescriptions: Continued Flovent HFA 110 mcg/actuation HFA aerosol inhaler 1 puff inhalation BID prazosin 1 mg capsule 2 mg PO QHS Patient Comments: TAKE 1 CAPSULE BY MOUTH EVERY DAY melatonin 3 mg capsule 3 mg PO HS PRN fluoxetine 40 mg capsule 40 mg PO DAILY Patient Comments: TAKE 1 CAPSULE BY MOUTH EVERY DAY IN THE MORNING clonidine HCl 0.1 mg tablet 0.1 mg PO DAILY Patient Comments: TAKE 1 TABLET BY MOUTH EVERY DAY AT NOON topiramate 25 mg tablet 25 mg PO DAILY PRN Patient Comments: TAKE 1 TABLET BY MOUTH TWICE DAILY valproic acid 250 mg capsule 250 mg PO TID Patient Comments: TAKE 1 CAPSULE BY MOUTH FOUR TIMES DAILY omeprazole 40 mg capsule,delayed release(DR/EC) 40 mg PO DAILY Patient Comments: TAKE 1 CAPSULE BY MOUTH EVERY DAY Discontinued prazosin 1 mg capsule 1 mg PO DAILY Patient Comments: duplicate No Action gabapentin 300 mg capsule 400 mg PO BID Patient Comments: Took 1200mg a day and ran out and stopped taking this med Discharge Instructions Instructions: Asthma (ED), Anxiety (ED) Additional Instructions: Use albuterol inhaler as follows: 2 puffs every 4 hours as needed for wheezing. Be sure to use spacer. Please contact your primary care physician to arrange follow-up. Please discuss ongoing use of gabapentin. Please follow-up with your mental health date night caregiver. Return to the ER immediately for any worsening or new concerning symptoms. Medical Decision Making 36-year-old male here with history of anxiety, recently learned that his mom , here with anxiety and shortness of breath prior to arrival. Patient is saturating well in no respiratory distress. Suspect anxiety attack with grief reaction. Pt does have a history of asthma and notes he is out of his inhaler. He did have some wheeze earlier today. I will prescribe albuterol inhaler with spacer for use should he develop additional wheezing. I discussed checking screening labs and Depakote level with the patient and he provided informed refusal. He will follow-up with his primary care physician. HPI General Mode of arrival: EMS . Date/Time Provider Initiated Documentation: 09/27/22 19:42 . Limitations to Documentation: no limitations . Information obtained by: patient . HPI Narrative: 36-year-old male with history of ADHD, bipolar disorder, generalized anxiety disorder, PTSD, severe anxiety with panic, social phobia, sleep terror disorder, asthma, CVA with residual paresthesias of the right side, here with chief complaint of anxiety. Patient notes that his mother 1 week ago. He has had little information regarding her . He is grieving her loss. He al so notes stress at work. He states she is a hard worker and enjoys working but that recently his boss has been somewhat demanding. Today at work he notes he was feeling little bit overwhelmed. He had some shortness of breath and is concerned he may have had some asthma exacerbation. Shortness of breath and wheezing has improved since he has been here. Patient has no complaints at this time. He does note that he had some difficulty getting in to see primary care and establishing care in the area. Related Data Home Medications Medication Instructions Recorded Confirmed clonidine HCl 0.1 mg tablet 0.1 mg PO DAILY 04/07/21 09/27/22 fluoxetine 40 mg capsule 40 mg PO DAILY 04/07/21 09/27/22 gabapentin 300 mg capsule 400 mg PO BID 04/07/21 04/24/21 omeprazole 40 mg capsule,delayed 40 mg PO DAILY 04/07/21 09/27/22 release topiramate 25 mg tablet 25 mg PO DAILY PRN 04/07/21 09/27/22 valproic acid 250 mg capsule 250 mg PO TID 04/07/21 09/27/22 fluticasone propionate 110 1 puff inhalation BID 05/22/21 09/27/22 mcg/actuation HFA aerosol inhaler (Flovent HFA) melatonin 3 mg capsule 3 mg PO HS PRN 05/22/21 09/27/22 prazosin 1 mg capsule 2 mg PO QHS 05/22/21 09/27/22 Allergies Allergy/AdvReac Type Severity Reaction Status Date / Time amoxicillin Allergy Severe edema Verified 09/27/22 19:29 aspirin Allergy Severe edema Unverified 09/27/22 19:29 bee venom protein (honey bee) Allergy Verified 09/27/22 19:29 Milk Containing Products Allergy Verified 09/27/22 19:29 (Dairy) [Milk Containing Products] latex Allergy Severe rash Uncoded 09/27/22 19:29 General Stated Complaint: Anxiety KYLE: 3 Review of Systems All systems reviewed & are unremarkable except as noted in HPI and below Constitutional Constitutional: Denies fever(s) Cardiovascular Cardiovascular: Denies chest pain Respiratory Respiratory: Denies cough Psychiatric Psychiatric: Reports anxiety PFSH All Active Problems Anxiety (Chronic) Grief reaction (Chronic) Asthma (Chronic) Medical History ADHD Asthma Bipolar disorder Breathing-related sleep disorder CVA (cerebral vascular accident) Generalized anxiety disorder GERD (gastroesophageal reflux disease) Migraines Moderate recurrent major depression PTSD (post-traumatic stress disorder) Severe anxiety with panic Sleep terror disorder Social phobia Surgical History H/O wisdom tooth extraction History of esophagogastroduodenoscopy x2 Family History Mother Bipolar disorder Brother Schizophrenia ADHD Social History Smoking/Tobacco Use Status: Current every day Tobacco Type: cigarettes Smoking risk assessment performed?: Yes Alcohol Intake: former Drug use: Occasionally Substance use type: does not use and marijuana What type of physical activity do you participate in: walking Do you feel safe at home: Yes Do you feel safe in your relationship?: Yes Exam Const General: cooperative and no acute distress HENMT Mouth: moist mucous membranes Eyes Conjunctivae: normal conjunctivae Sclera: normal sclerae Neck Neck: trachea midline and supple Resp Auscultation: clear to auscultation bilaterally, no rales, no rhonchi and no wheezes Cardio Rate: regular rate and not tachycardic Rhythm: regular rhythm GI Palpation: soft, not firm, no guarding, no masses, not rigid and nontender Skin General skin exam: no rashes or lesions noted Neuro General: patient alert, patient awake, patient oriented x3 and tone normal Cranial Nerves: CN's II-XI intact bilaterally Cognition: normal cognition Other: 5/5 strength all extremities, paresthesia right upper extremity and right lower extremity is noted be chronic and unchanged Extrem General: no edema Psych Appearance: grossly normal Mental Status: mental status grossly normal Affect: normal affect Attitude: cooperative Thought Process: normal Thought Content: normal Insight: insight good Judgment: judgment good Course Vital Signs Vital signs: Vital Signs Temperature 36.7 C 09/27/22 19:22 Pulse 89 09/27/22 19:22 Respiratory Rate 16 09/27/22 19:22 Blood Pressure 136/81 09/27/22 19:22 Pulse Oximetry 99 09/27/22 19:22 Temperature 36.7 C 09/27/22 19:22 Pulse 89 09/27/22 19:22 Respiratory Rate 16 09/27/22 19:22 Respiratory Effort Normal 09/27/22 19:30 Respiratory Depth Normal 09/27/22 19:30 Respiratory Pattern Normal 09/27/22 19:30 Blood Pressure 136/81 09/27/22 19:22 Blood Pressure Position Sitting 09/27/22 19:22 Pulse Oximetry 99 09/27/22 19:22 Oxygen Delivery Method Room Air 09/27/22 19:22 Oxygen Flow Rate 0 09/27/22 19:22
[2022-09-27] MEDS: Albuterol HFA 8 GM 60 PUFF INH IH (20:02)
[2022-09-27] MEDS: Inhaler, Assist Device 1 EACH MC (20:02)
--- NOTE | 2022-09-27 20:09 | NUR.NOTE ---
referal to pcp for ongoing careNursing Note:
--- NOTE | 2022-09-28 07:33 | PDOC.CMACT ---
Date of service: 09/28/22 Time of Service: 07:33 Care Management Activity Note Activity Note Text Activity Note Text: Marc is seen in the ED for anxiety. At the request of ED provider, CM coordinates a referral to Annemarie Boateng MD, of [facility], t-doc, to assist Marc in establishing care with a PCP.
== END 2022-09-27 20:30 | disposition home or self-care (01) ==
LOC: ER 20:11
PROVIDERS: Emergency Provider Student in an Organized Health Care Education/Training Program; PCP Family Medicine
DX: R53.1 Weakness (principal); F43.22 Adjustment disorder with anxiety; R51.9 Headache, unspecified; J45.909 Unspecified asthma, uncomplicated; F17.210 Nicotine dependence, cigarettes, uncomplicated; Z86.73 Personal history of transient ischemic attack (TIA), and cerebral infarction without residual deficits
CPT/HCPCS: 36415; 99284; 99282

== ENCOUNTER → 2025-02-11 09:40 | Outpatient (BNVA) | payer MEDICARE, MEDICAID, SELFPAY | PROVIDERS: PCP Family Medicine; Referring Provider Family Medicine; Visit Provider Internal Medicine Pulmonary Disease | DX: J43.9 Emphysema, unspecified (principal); J45.40 Moderate persistent asthma, uncomplicated; Z72.0 Tobacco use; Z23 Encounter for immunization | CPT/HCPCS: 99214; 99406; 90471; 90684 ==